=== PATIENT | male | born 1980 | race Caucasian/White ===

== ENCOUNTER 2018-08-20 05:28 | Day surgery (SDC) | payer OTHER ==
[~2018-08-20] VITALS: Ht 170.2 cm; Wt 77.0 kg
[~2018-08-20 05:28] MED LIST: CEFD300C37 PO; CLAR500T PO; CLON0.1T22 PO; ESOM40CA PO; OXYM30SP81 NAS; PRED10TA PO; QUET25TA7 PO; SUMA50TA4 PO
[2018-08-20] MEDS ORDERED: LACTATED RINGERS 1,000 ML IV SCH (06:04)
[2018-08-20 06:05] VITALS: BP 132/92
[2018-08-20] MEDS ORDERED: LIDOCAINE-MPF 1%, 2ML INFIL ONE (06:30)
[2018-08-20] MEDS ORDERED: OXYMETAZOLINE NASAL SPRAY 0.05%, 15ML ONE (07:07)
[2018-08-20] MEDS ORDERED: LIDOCAINE 1%, 20ML ONE (07:07)
[2018-08-20] MEDS ORDERED: EPINEPHRINE 1 MG/ML, 1ML ONE (07:07)
[2018-08-20] MEDS ORDERED: NEOSPORIN OINT, 15GM ONE (07:11)
[2018-08-20] MEDS ORDERED: MIDAZOLAM 1 MG/ML, 2ML ONE (07:12)
[2018-08-20] MEDS ORDERED: FENTANYL PF 250 MCG/5ML ONE (07:12)
[2018-08-20] MEDS ORDERED: ONDANSETRON 2MG/ML, 2ML IV PRN (08:30)
[2018-08-20] MEDS ORDERED: NEOSTIGMINE 1 MG/ML, 10ML ONE (08:30)
[2018-08-20] MEDS ORDERED: DEXAMETHASONE 4 MG/ML, 1ML ONE (08:30)
[2018-08-20] MEDS ORDERED: PROPOFOL 10 MG/ML, 20ML ONE (08:30)
[2018-08-20] MEDS ORDERED: CEFAZOLIN 1,000 MG ONE (08:30)
[2018-08-20] MEDS ORDERED: ONDANSETRON ODT 8 MG PO PRN (08:30)
[2018-08-20] MEDS ORDERED: ROCURONIUM 10MG/ML,5ML ONE (08:30)
[2018-08-20] MEDS ORDERED: ONDANSETRON 2MG/ML, 2ML ONE (08:30)
[2018-08-20] MEDS ORDERED: ACETAMINOPHEN 325 MG TABLET PO PRN (08:30)
[2018-08-20] MEDS ORDERED: GLYCOPYRROLATE 0.2MG/1ML, 5ML ONE (08:30)
[2018-08-20] MEDS ORDERED: PROMETHAZINE 25 MG/ML, 1ML IV PRN (08:30)
[2018-08-20] MEDS ORDERED: SUCCINYLCHOLINE 20 MG/ML, 10ML ONE (08:30)
[2018-08-20] MEDS ORDERED: MEPERIDINE/PF 25MG/0.5ML IVPush PRN (08:30)
[2018-08-20] MEDS ORDERED: OXYcodone 5 MG/5 ML ORAL.SOL UDC PO PRN (08:30)
[2018-08-20] MEDS ORDERED: FENTANYL PF 100 MCG/2ML ONE ×2 (08:53→09:19)
[2018-08-20] MEDS: FENTANYL PF 100 MCG/2ML IV PRN ×4 (08:56→09:20)
[2018-08-20] MEDS ORDERED: HYDROmorphone 1 MG/ML, 1ML VIAL ONE (09:27)
[2018-08-20] MEDS: HYDROmorphone 2 MG/ML, 1ML IVPush PRN ×3 (09:29→09:43)
== END 2018-08-20 11:20 | disposition home or self-care (01) ==
LOC: OR 05:28
PROVIDERS: ATTEND Otolaryngology
DX: J34.2 Deviated nasal septum (principal); J34.3 Hypertrophy of nasal turbinates; G43.909 Migraine, unspecified, not intractable, without status migrainosus; K21.9 Gastro-esophageal reflux disease without esophagitis
CPT/HCPCS: 30140; 30520; 88300; J0171; J0330; J0690; J1100; J1170; J2250; J2405; J2704; J2710; J3010; J3490; J7120; 88307; 88311